=== PATIENT | male | born 1980 | race African-American/Black ===

== ENCOUNTER 2022-05-17 22:04 | Emergency (ER) | payer SELFPAY ==
[2022-05-18] MEDS ORDERED: Morphine 4 MG/ML VIAL ONE (00:08)
[2022-05-18] MEDS ORDERED: Ondansetron PF 4 MG/2 ML Vial ONE (00:08)
[2022-05-18 00:41] LABS: #Eosinphils 0.2 10x3/uL (0.0-0.5); #Neutrophils 5.7 10x3/uL (1.5-8.4); %Basophils 0.4 % (0.0-2.0); %Eosinophils 2.3 % (0.0-6.0); %Lymphocytes 27.1 % (18.0-47.0); %Monocytes 10.1 % (0.0-10.0); %Neutrophils 59.8 % (40.0-75.0); Hemoglobin 13.9 g/dL (13.5-17.5); Mean Corpuscular HGB CONC 31.8 g/dL (32.0-36.0); Mean Corpuscular Hemoglobin 23.4 pg (27.0-33.0); Mean Corpuscular Volume 73.7 fl (81.2-95.1); Platelet Count 301 10x3/uL (150-450); RBC Distribution Width 15.9 % (11.5-14.5); Red Blood Cell (RBC) Count 5.93 10x6/uL (4.32-5.72); White Blood Cell (WBC) Count 9.5 10x3/uL (3.5-10.5)
[2022-05-18 01:00] LABS: ALT (SGPT) 21 U/L (8-55); AST (SGOT) 14 U/L (5-34); Albumin 3.8 g/dL (3.5-5.0); Alkaline Phosphatase 70 U/L (40-110); Anion Gap 13 mmol/L (10-20); BUN (Urea Nitrogen) 8 mg/dL (8.9-20.6); Bilirubin, Total 0.3 mg/dL (0.2-1.2); Calc. Creatinine Clearance 0 mL/min (70-130); Carbon Dioxide 29 mmol/L (22-29); Chloride 104 mmol/L (98-107); Estimated GFR 101; Globulin 2.9 g/dL (2.4-3.5); Glucose 97 mg/dL (70-105); Lipase 47 U/L (8-78); Potassium 4.5 mmol/L (3.5-5.1); Protein, Total 6.7 g/dL (6.0-8.3); Sodium 141 mmol/L (136-145)
== END 2022-05-18 01:08 | disposition left against medical advice (07) ==
LOC: CSHERS 22:04
DX: K81.0 Acute cholecystitis (principal); I10 Essential (primary) hypertension
CPT/HCPCS: 76705; 80053; 83605; 83690; 85025; 96374; 96375; J2270; J2405

== ENCOUNTER 2022-06-21 22:04 | Emergency (ER) | payer SELFPAY ==
[2022-06-21] MEDS ORDERED: Ketorolac Tromethamine 30 MG/ML VIAL ONE (22:44)
[2022-06-21 22:45] LABS: #Eosinphils 0.1 10x3/uL (0.0-0.5); #Neutrophils 6.2 10x3/uL (1.5-8.4); %Basophils 0.3 % (0.0-2.0); %Eosinophils 1.4 % (0.0-6.0); Mean Corpuscular HGB CONC 31.4 g/dL (32.0-36.0); Mean Corpuscular Hemoglobin 22.7 pg (27.0-33.0); Mean Corpuscular Volume 72.3 fl (81.2-95.1); Mean Platelet Volume 9.7 fl (7.4-10.4); Platelet Count 287 10x3/uL (150-450); RBC Distribution Width 16.4 % (11.5-14.5); Red Blood Cell (RBC) Count 5.73 10x6/uL (4.32-5.72); White Blood Cell (WBC) Count 9.7 10x3/uL (3.5-10.5)
[2022-06-21 23:03] LABS: ALT (SGPT) 34 U/L (8-55); AST (SGOT) 22 U/L (5-34); Albumin 3.8 g/dL (3.5-5.0); Alkaline Phosphatase 68 U/L (40-110); Anion Gap 11 mmol/L (10-20); BUN (Urea Nitrogen) 11 mg/dL (8.9-20.6); Bilirubin, Total 0.2 mg/dL (0.2-1.2); Calc. Creatinine Clearance 0 mL/min (70-130); Calcium 9.4 mg/dL (7.8-10.44); Carbon Dioxide 27 mmol/L (22-29); Chloride 105 mmol/L (98-107); Estimated GFR 98; Globulin 2.8 g/dL (2.4-3.5); Glucose 96 mg/dL (70-105); Lipase 37 U/L (8-78); Protein, Total 6.6 g/dL (6.0-8.3); Sodium 139 mmol/L (136-145)
[2022-06-22] MEDS ORDERED: diphenhydrAMINE 50 MG/ML VIAL ONE (00:40)
[2022-06-22] MEDS ORDERED: Metoclopramide HCl 10 MG/2 ML VIAL ONE (00:40)
== END 2022-06-22 02:46 | disposition home or self-care (01) ==
LOC: CSHERS 22:04
DX: K80.00 Calculus of gallbladder with acute cholecystitis without obstruction (principal); R51.9 Headache, unspecified; I10 Essential (primary) hypertension
CPT/HCPCS: 76705; 80053; 83690; 85025; 93005; 96361; 96374; 96375; J1200; J1885; J2765